=== PATIENT | female | born 1970 | race Caucasian/White ===

== ENCOUNTER 2019-05-19 05:59 | Inpatient (IN) | payer BC ==
[2019-05-18] MEDS: CEFAZOLIN 2 GM/50 ML (PMX) 50 ML IVPB (07:00)
[2019-05-19] MEDS: LACTATED RINGER'S 1,000 ML (ENTER RATE) IV ×2 (07:12→17:34)
[2019-05-19 07:36] LABS: INR 0.85; PROTIME 11.7 Sec (11.9-14.9); PT RATIO 0.9
[2019-05-19 07:37] LABS: PARTIAL THROMBOPLASTIN TIME 26.2 Sec (23.0-35.0)
[2019-05-19] MEDS ORDERED: SEVOFLURANE 15 MIN (07:40)
[2019-05-19] MEDS ORDERED: morphine SULFATE/PF (10 MG/10 ML) INJ (07:43)
[2019-05-19] MEDS ORDERED: PROPOFOL 20 ML (07:43)
[2019-05-19] MEDS ORDERED: MIDAZOLAM 1 MG/ML 2 ML INJ (07:43)
[2019-05-19] MEDS ORDERED: CEFAZOLIN 1 GM INJ (07:43)
[2019-05-19] MEDS ORDERED: ROPIVACAINE 0.2% 20 ML VIAL (07:43)
[2019-05-19] MEDS ORDERED: ROCURONIUM 50 MG INJ (07:43)
[2019-05-19] MEDS ORDERED: LABETALOL HCL 20MG INJ (08:45)
[2019-05-19] MEDS ORDERED: HETASTARCH 6% NACL 500 ML (09:08)
[2019-05-19] MEDS ORDERED: PHENYLephrine (100 MCG/ML) 10ML SYG ×2 (09:09→09:30)
[2019-05-19] MEDS ORDERED: ONDANSETRON 4 MG INJ (09:11)
[2019-05-19] MEDS ORDERED: DEXAMETHASONE 4 MG/ML 5 ML INJ (09:11)
[2019-05-19] MEDS ORDERED: KETOROLAC 30 MG INJ (09:11)
[2019-05-19] MEDS ORDERED: METOCLOPRAMIDE 10 MG INJ (09:11)
[2019-05-19] MEDS ORDERED: EPHEDrine 25 MG/5 ML SYG (09:17)
[2019-05-19] MEDS ORDERED: METOCLOPRAMIDE 10 MG INJ IV (09:30)
[2019-05-19] MEDS ORDERED: morphine 2 MG INJ IV ×2 (09:30)
[2019-05-19] MEDS ORDERED: NALBUPHINE HCL (10 MG/1 ML) INJ IV (09:30)
[2019-05-19] MEDS ORDERED: ALBUMIN HUMAN 5% 250 ML IV (09:30)
[2019-05-19] MEDS ORDERED: hydrALAzine 20 MG INJ IV (09:30)
[2019-05-19] MEDS ORDERED: OXYCODONE/ACETAMINOPHEN (5/325) TAB PO (09:30)
[2019-05-19] MEDS ORDERED: HYDROmorphONE 1 MG/5 ML IV SYRINGE IV (09:30)
[2019-05-19] MEDS ORDERED: DIPHENHYDRAMINE 50 MG INJ IV (09:30)
[2019-05-19] MEDS ORDERED: HYDROCODONE/APAP (5/325) TAB PO (09:30)
[2019-05-19] MEDS ORDERED: NALOXONE (0.4 MG/ML) INJ IV (09:30)
[2019-05-19] MEDS ORDERED: MEPERIDINE 25 MG INJ IV (09:30)
[2019-05-19] MEDS ORDERED: FENTAnyl 50 MCG/ML VIAL IV (09:30)
[2019-05-19] MEDS ORDERED: ONDANSETRON 4 MG INJ IV (09:30)
[2019-05-19] MEDS ORDERED: LABETALOL HCL 20MG INJ IV (09:30)
[2019-05-19] MEDS ORDERED: ACETAMINOPHEN 500 MG TAB PO (09:30)
[2019-05-19] MEDS ORDERED: HYDROmorphONE 0.5 MG/0.5 ML SYG IV (09:30)
[2019-05-19] MEDS ORDERED: EPHEDrine 25 MG/5 ML SYG IV (09:30)
[2019-05-19] MEDS ORDERED: SUGAMMADEX SODIUM 200 MG/2 ML VIAL IV (10:32)
[2019-05-19] MEDS: IBUPROFEN 600 MG TAB PO ×2 (11:00→20:25)
[2019-05-19] MEDS ORDERED: ACETAMINOPHEN 325 MG TAB PO (11:00)
[2019-05-19] MEDS: FENTAnyl 50 MCG/ML VIAL IV (11:25)
[2019-05-19] MEDS: HYDROmorphONE 1 MG/5 ML IV SYRINGE IV (11:31)
[2019-05-19] MEDS: ONDANSETRON 4 MG INJ IV ×2 (13:16→19:38)
[2019-05-19] MEDS: HYDROmorphONE 0.5 MG/0.5 ML SYG IV ×2 (14:45→21:59)
[2019-05-19] MEDS: CEFAZOLIN 2 GM/50 ML (PMX) 50 ML IVPB ×2 (14:52→21:44)
[2019-05-19] MEDS: OXYCODONE/ACETAMINOPHEN (5/325) TAB PO (19:38)
[2019-05-19] MEDS: DIPHENHYDRAMINE 50 MG INJ IV (22:34)
[2019-05-19] MEDS: KETOROLAC 30 MG INJ IV (23:08)
[2019-05-20] MEDS: IBUPROFEN 600 MG TAB PO ×3 (03:01→18:02)
[2019-05-20 06:13] LABS: ADD MAN DIFF? NO
[2019-05-20 06:17] LABS: BASOPHILS % 0.1 % (0.0-2.0); HEMATOCRIT 29.1 % (37.0-47.0); HEMOGLOBIN 9.3 g/dl (12.0-16.0); LYMPHOCYTES # 1.1 10^3/ul (0.8-2.9); LYMPHOCYTES % 8.8 % (15.0-51.0); MEAN CORPUSCULAR HEMOGLOBIN 28.4 pg (29.0-33.0); MEAN CORPUSCULAR VOLUME 88.7 fl (82.0-101.0); MEAN PLATELET VOLUME 11.1 fl (7.4-10.4); MONOCYTE # 0.8 10^3/ul (0.3-0.9); MONOCYTES % 6.6 % (0.0-11.0); NEUTROPHIL # 10.1 10^3/ul (1.6-7.5); NEUTROPHILS % 83.8 % (39.0-77.0); PLATELET COUNT 239 10^3/UL (140-415); RED BLOOD COUNT 3.28 10^6/ul (4.20-5.40); RED CELL DISTRIBUTION WIDTH 14.7 % (11.5-14.5)
[2019-05-20] MEDS: CEFAZOLIN 2 GM/50 ML (PMX) 50 ML IVPB (06:22)
[2019-05-20] MEDS: OXYCODONE/ACETAMINOPHEN (5/325) TAB PO ×5 (06:23→23:47)
[2019-05-20] MEDS: KETOROLAC 30 MG INJ IV ×2 (09:23→21:45)
[2019-05-21] MEDS: IBUPROFEN 600 MG TAB PO ×3 (03:28→18:58)
[2019-05-21] MEDS: HYDROmorphONE 0.5 MG/0.5 ML SYG IV ×2 (09:10→20:42)
[2019-05-21] MEDS: OXYCODONE/ACETAMINOPHEN (5/325) TAB PO ×3 (10:43→18:56)
[2019-05-21] MEDS: KETOROLAC 30 MG INJ IV ×2 (16:36→23:32)
[2019-05-22] MEDS: OXYCODONE/ACETAMINOPHEN (5/325) TAB PO ×2 (00:22→08:14)
[2019-05-22] MEDS: IBUPROFEN 600 MG TAB PO ×2 (02:36→12:07)
[2019-05-22] MEDS: HYDROmorphONE 0.5 MG/0.5 ML SYG IV (09:54)
== END 2019-05-22 13:08 | disposition home or self-care (01) | DRG 743 ==
LOC: REC 05:59 → MS1 17:29
PROC: 0UT90ZZ Resection of Uterus, Open Approach (ICD-10-PCS; principal; 2019-05-19 07:30)
PROC: 0UT70ZZ Resection of Bilateral Fallopian Tubes, Open Approach (ICD-10-PCS; 2019-05-19 07:30)
DX: D25.9 Leiomyoma of uterus, unspecified (principal); N80.0 Endometriosis of uterus; N93.9 Abnormal uterine and vaginal bleeding, unspecified
CPT/HCPCS: 85025; 85610; 85730; 86850; 86900; 86901; 86920; 87086; 88305